=== PATIENT | male | born 1965 | race Caucasian/White ===

== ENCOUNTER 2019-03-18 11:40 | Inpatient (IN) | payer OTHER ==
[2019-03-18 12:11] VITALS: BMI 29.7
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
[2019-03-18] MEDS ORDERED: MENTHOL/PHENOL 1 EACH UD MM PRN (13:18)
[2019-03-18] MEDS ORDERED: MAGNESIUM CITRATE 300 ML BOTTLE PO PRN (13:18)
[2019-03-18] MEDS ORDERED: MAGNESIUM HYDROX 2400MG/30ML ORAL SUSPENSION 30 ML CUP PO PRN (13:18)
[2019-03-18] MEDS ORDERED: P-EPHED 60MG/TRIPROLIDI 2.5MG TABLET PO PRN (13:18)
[2019-03-18] MEDS ORDERED: LOPERAMIDE HCL 2 MG CAPSULE PO PRN (13:18)
[2019-03-18] MEDS ORDERED: MAG HYDROX/AL HYDROX/SIMETH 30 ML UNIT-DOSE CUP PO PRN (13:18)
[2019-03-18] MEDS ORDERED: guaiFENesin 200 MG/10 ML 10 ML UNIT-DOSE CUPS PO PRN (13:18)
[2019-03-18] MEDS: metFORMIN HCL 500 MG TABLET (FP) PO SCH (16:51)
[2019-03-18 17:25] LABS: MCHC 32.4 g/dl (32.0-35.9); MEAN PLT VOLUME 8.1 fl (7.5-11.1); PLATELET COUNT 349 K/MM3 (134-434); RDW 24.6 % (11.9-15.9); WHITE BLOOD COUNT 6.4 K/mm3 (4.0-10.0)
[2019-03-18 17:36] LABS: ALBUMIN 4.1 g/dl (3.4-5.0); BILIRUBIN,TOTAL 0.5 mg/dL (0.2-1); BLOOD UREA NITROGEN 11.6 mg/dL (7-18); CALCIUM 9.5 mg/dL (8.5-10.1); CREATININE 0.7 mg/dL (0.55-1.3); POTASSIUM 3.8 mmol/L (3.5-5.1); TOT PROT 8.1 g/dl (6.4-8.2)
[2019-03-18] MEDS: IBUPROFEN 400 MG TABLET (FP) PO PRN ×2 (18:36→23:58)
[2019-03-18] MEDS: BACITRACIN 15 GM TUBE TOPICAL OINTMENT TP SCH (21:38)
[2019-03-18] MEDS: ATENOLOL 25 MG TABLET (FP) PO SCH (21:38)
[2019-03-18] MEDS: MELATONIN 5 MG TABLETS PO PRN (21:38)
[2019-03-18] MEDS: THIAMINE HCL 100 MG TABLET (FP) PO SCH (21:38)
[2019-03-19] MEDS: ACETAMINOPHEN 325 MG TABLET (FP) PO PRN ×2 (02:03→18:52)
[2019-03-19] MEDS: metFORMIN HCL 500 MG TABLET (FP) PO SCH ×2 (06:21→16:35)
--- NOTE | 2019-03-19 09:17 | PN ---
[facility] Progress Note Note: Vital Signs Temperature 97.9 F 03/19/19 07:07 Pulse Rate 68 03/19/19 07:07 Respiratory Rate 18 03/19/19 07:07 Blood Pressure 146/94 03/19/19 07:07 O2 Sat by Pulse Oximetry (%) Laboratory Last Values WBC 6.4 K/mm3 (4.0-10.0) 03/18/19 13:10 RBC 4.80 M/mm3 (4.00-5.60) 03/18/19 13:10 Hgb 12.0 GM/dL (11.7-16.9) 03/18/19 13:10 Hct 37.0 % (35.4-49) 03/18/19 13:10 MCV 77.0 fl (80-96) L 03/18/19 13:10 MCH 25.0 pg (25.7-33.7) L 03/18/19 13:10 MCHC 32.4 g/dl (32.0-35.9) 03/18/19 13:10 RDW 24.6 % (11.9-15.9) H 03/18/19 13:10 Plt Count 349 K/MM3 (134-434) 03/18/19 13:10 MPV 8.1 fl (7.5-11.1) 03/18/19 13:10 Sodium 137 mmol/L (136-145) 03/18/19 13:10 Potassium 3.8 mmol/L (3.5-5.1) 03/18/19 13:10 Chloride 101 mmol/L (98-107) 03/18/19 13:10 Carbon Dioxide 30 mmol/L (21-32) 03/18/19 13:10 Anion Gap 6 MMOL/L (8-16) L 03/18/19 13:10 BUN 11.6 mg/dL (7-18) 03/18/19 13:10 Creatinine 0.7 mg/dL (0.55-1.3) 03/18/19 13:10 Est GFR (CKD-EPI)AfAm 126.64 03/18/19 13:10 Est GFR (CKD-EPI)NonAf 109.27 03/18/19 13:10 POC Glucometer 128 UNITS (80-120) 03/19/19 06:20 Random Glucose 138 mg/dL (74-106) H 03/18/19 13:10 Calcium 9.5 mg/dL (8.5-10.1) 03/18/19 13:10 Total Bilirubin 0.5 mg/dL (0.2-1) 03/18/19 13:10 AST 27 U/L (15-37) 03/18/19 13:10 ALT 34 U/L (13-61) 03/18/19 13:10 Alkaline Phosphatase 154 U/L (45-117) H 03/18/19 13:10 Total Protein 8.1 g/dl (6.4-8.2) 03/18/19 13:10 Albumin 4.1 g/dl (3.4-5.0) 03/18/19 13:10 RPR Titer Nonreactive (NONREACTIVE) 03/18/19 13:10 labs reviewed continue to monitor
[2019-03-19] MEDS: PRENATAL VITAMINS W/ FOLIC ACID TABLET (FP) PO SCH (09:34)
[2019-03-19] MEDS: BACITRACIN 15 GM TUBE TOPICAL OINTMENT TP SCH ×2 (09:35→21:21)
[2019-03-19] MEDS: ATENOLOL 25 MG TABLET (FP) PO SCH ×2 (09:35→21:21)
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
[2019-03-19 12:05] LABS: EPI CELLS 1.7 /HPF (0-5/HPF); HYALINE CASTS 9 /lpf (0-8); PH,URINE 6.5 (5.0-8.0); URINE APPEARANCE CLEAR; URINE BACTERIA 1.7 /hpf (NEGATIVE); URINE BILIRUBIN NEGATIVE (NEGATIVE); URINE COLOR DK YELLOW; URINE GLUCOSE (UA) NEGATIVE (NEGATIVE); URINE KETONE TRACE (NEGATIVE); URINE LEUK ESTERASE NEGATIVE (NEGATIVE); URINE NITRITE NEGATIVE (NEGATIVE); URINE PROTEIN 1+ (NEGATIVE); URINE RBC 1 /hpf (0-4); URINE WBC 1 /hpf (0-5)
[2019-03-19] MEDS: IBUPROFEN 400 MG TABLET (FP) PO PRN (14:59)
[2019-03-19] MEDS: MELATONIN 5 MG TABLETS PO PRN (21:21)
[2019-03-19] MEDS: THIAMINE HCL 100 MG TABLET (FP) PO SCH (21:21)
[2019-03-20] MEDS: IBUPROFEN 400 MG TABLET (FP) PO PRN ×2 (01:33→19:03)
[2019-03-20] MEDS: metFORMIN HCL 500 MG TABLET (FP) PO SCH ×2 (06:28→16:32)
[2019-03-20] MEDS: SERTRALINE HCL 50 MG TABLET (FP) PO SCH (10:13)
[2019-03-20] MEDS: ATENOLOL 25 MG TABLET (FP) PO SCH ×2 (10:13→21:20)
[2019-03-20] MEDS: PRENATAL VITAMINS W/ FOLIC ACID TABLET (FP) PO SCH (10:14)
[2019-03-20] MEDS: BACITRACIN 15 GM TUBE TOPICAL OINTMENT TP SCH ×2 (10:15→21:20)
--- NOTE | 2019-03-20 13:39 | PN ---
[facility] Progress Note Note: Patient seen for c/o insomnia and feeling sad. Evaluated by Psych yesterday and restarted on Zoloft. Patient denies SI/HI and states insomnia contributes to sadness. Vital Signs Temperature 98.3 F 03/20/19 07:38 Pulse Rate 66 03/20/19 09:30 Respiratory Rate 18 03/20/19 09:30 Blood Pressure 144/98 03/20/19 09:30 O2 Sat by Pulse Oximetry (%) Laboratory Tests 03/18/19 03/18/19 03/18/19 13:10 13:10 13:10 WBC 6.4 RBC 4.80 Hgb 12.0 Hct 37.0 MCV 77.0 L MCH 25.0 L MCHC 32.4 RDW 24.6 H Plt Count 349 MPV 8.1 Sodium 137 Potassium 3.8 Chloride 101 Carbon Dioxide 30 Anion Gap 6 L BUN 11.6 Creatinine 0.7 Est GFR (CKD-EPI)AfAm 126.64 Est GFR (CKD-EPI)NonAf 109.27 POC Glucometer Random Glucose 138 H Calcium 9.5 Total Bilirubin 0.5 AST 27 ALT 34 Alkaline Phosphatase 154 H Total Protein 8.1 Albumin 4.1 Urine Color Urine Appearance Urine pH Ur Specific Upatoi Urine Protein Urine Glucose (UA) Urine Ketones Urine Blood Urine Nitrite Urine Bilirubin Urine Urobilinogen Ur Leukocyte Esterase Urine WBC (Auto) Urine RBC (Auto) Urine Casts (Auto) U Epithel Cells (Auto) Urine Bacteria (Auto) RPR Titer Nonreactive 03/18/19 03/18/19 03/19/19 13:55 16:50 06:20 WBC RBC Hgb Hct MCV MCH MCHC RDW Plt Count MPV Sodium Potassium Chloride Carbon Dioxide Anion Gap BUN Creatinine Est GFR (CKD-EPI)AfAm Est GFR (CKD-EPI)NonAf POC Glucometer 153 104 128 Random Glucose Calcium Total Bilirubin AST ALT Alkaline Phosphatase Total Protein Albumin Urine Color Urine Appearance Urine pH Ur Specific Upatoi Urine Protein Urine Glucose (UA) Urine Ketones Urine Blood Urine Nitrite Urine Bilirubin Urine Urobilinogen Ur Leukocyte Esterase Urine WBC (Auto) Urine RBC (Auto) Urine Casts (Auto) U Epithel Cells (Auto) Urine Bacteria (Auto) RPR Titer 03/19/19 03/19/19 03/20/19 09:40 16:35 06:27 WBC RBC Hgb Hct MCV MCH MCHC RDW Plt Count MPV Sodium Potassium Chloride Carbon Dioxide Anion Gap BUN Creatinine Est GFR (CKD-EPI)AfAm Est GFR (CKD-EPI)NonAf POC Glucometer 152 149 Random Glucose Calcium Total Bilirubin AST ALT Alkaline Phosphatase Total Protein Albumin Urine Color Dk yellow Urine Appearance Clear Urine pH 6.5 Ur Specific Upatoi 1.037 H Urine Protein 1+ H Urine Glucose (UA) Negative Urine Ketones Trace H Urine Blood Negative Urine Nitrite Negative Urine Bilirubin Negative Urine Urobilinogen 1.0 Ur Leukocyte Esterase Negative Urine WBC (Auto) 1 Urine RBC (Auto) 1 Urine Casts (Auto) 9 U Epithel Cells (Auto) 1.7 Urine Bacteria (Auto) 1.7 RPR Titer PE: in nad sitting in wheelchair alert and oriented x 3 skin warm and dry +perrla, eoms intact bl ext no tremors denies SI/HI A/P: insomnia depressed affect continue psych recommendations add belsomara 10mg hs prn monitor clinically
[2019-03-20] MEDS: THIAMINE HCL 100 MG TABLET (FP) PO SCH (21:20)
[2019-03-20] MEDS: SUVOREXANT 10 MG TABLET PO PRN (21:21)
--- NOTE | 2019-03-21 01:39 | PN ---
[facility] Progress Note Note: Patient was found kneeling at his bedside. He reports that he slipped from the bed while transferring to his wheelchair.He denies pain, dizziness and loss of consciousness. Patient was assessed in bed. No redness, scratches, bruise or swelling noted. Skin is intact. Fall protocol # 1 initiated. Patient refused to go to ER for further evaluation and signed the refusal of treatment form. Vital Signs - 24 hr 03/20/19 03/20/19 03/21/19 07:38 09:30 01:00 Temperature 98.3 F 98 F Pulse Rate 61 66 73 Respiratory 18 18 18 Rate Blood Pressure 142/93 144/98 151/82 03/21/19 03/21/19 03:00 05:00 Temperature 98 F 98 F Pulse Rate 69 68 Respiratory 18 18 Rate Blood Pressure 140/94 134/78 ASSESSMENT: CONSTITUTIONAL: Well developed, age appropriate, wheelchair bound HEENT: Head is normocephalic, atraumatic, EOMI. PERRLA NECK:Supple, Treachea midlin. Full ROM. No bruits heard bilaterally HEART: Regular rhythm, no murmurs, rubs or gallops LUNGS: Clear to ausclationbilaterally, No wheezing noted ABDOMEN: Soft, Protuberent, Normal bowel sounds. No palpable mass or guarding. EXTREMITIES: Peripheral pulses intact. No lower extremities edema noted NEUROLOGICAL : Alert and oriented x 3, No LOC, No focal deficits, Moves all extremities ACTION: Fall protocol #1 initiated Tylenol 650mg tablet Q6H prn Maintain fall and safety precautions
[2019-03-21] MEDS: metFORMIN HCL 500 MG TABLET (FP) PO SCH ×2 (07:06→17:58)
[2019-03-21] MEDS ORDERED: PT OWN MED DRAWER 7, Y5N ONE (09:20)
[2019-03-21] MEDS: PRENATAL VITAMINS W/ FOLIC ACID TABLET (FP) PO SCH (10:08)
[2019-03-21] MEDS: SERTRALINE HCL 50 MG TABLET (FP) PO SCH (10:08)
[2019-03-21] MEDS: ATENOLOL 25 MG TABLET (FP) PO SCH ×2 (10:08→22:03)
[2019-03-21] MEDS: BACITRACIN 15 GM TUBE TOPICAL OINTMENT TP SCH ×2 (10:09→22:04)
[2019-03-21] MEDS: IBUPROFEN 400 MG TABLET (FP) PO PRN ×2 (10:10→16:14)
[2019-03-21] MEDS: THIAMINE HCL 100 MG TABLET (FP) PO SCH (22:02)
[2019-03-21] MEDS: SUVOREXANT 10 MG TABLET PO PRN (22:03)
[2019-03-21] MEDS: ACETAMINOPHEN 325 MG TABLET (FP) PO PRN (22:07)
[2019-03-22] MEDS: IBUPROFEN 400 MG TABLET (FP) PO PRN ×3 (02:16→17:00)
[2019-03-22] MEDS: metFORMIN HCL 500 MG TABLET (FP) PO SCH ×2 (07:03→17:00)
[2019-03-22] MEDS: SERTRALINE HCL 50 MG TABLET (FP) PO SCH (10:19)
[2019-03-22] MEDS: BACITRACIN 15 GM TUBE TOPICAL OINTMENT TP SCH ×2 (10:19→21:27)
[2019-03-22] MEDS: ATENOLOL 25 MG TABLET (FP) PO SCH ×2 (10:19→21:27)
[2019-03-22] MEDS: PRENATAL VITAMINS W/ FOLIC ACID TABLET (FP) PO SCH (10:19)
[2019-03-22] MEDS: SUVOREXANT 10 MG TABLET PO PRN (21:26)
[2019-03-22] MEDS: ACETAMINOPHEN 325 MG TABLET (FP) PO PRN (21:27)
[2019-03-22] MEDS: THIAMINE HCL 100 MG TABLET (FP) PO SCH (21:27)
[2019-03-23] MEDS: IBUPROFEN 400 MG TABLET (FP) PO PRN (00:38)
[2019-03-23] MEDS: metFORMIN HCL 500 MG TABLET (FP) PO SCH ×2 (06:52→16:27)
[2019-03-23] MEDS: BACITRACIN 15 GM TUBE TOPICAL OINTMENT TP SCH ×2 (10:17→21:31)
[2019-03-23] MEDS: SERTRALINE HCL 50 MG TABLET (FP) PO SCH (10:17)
[2019-03-23] MEDS: PRENATAL VITAMINS W/ FOLIC ACID TABLET (FP) PO SCH (10:17)
[2019-03-23] MEDS: ATENOLOL 25 MG TABLET (FP) PO SCH ×2 (10:17→21:29)
[2019-03-23] MEDS: IBUPROFEN 600 MG TABLET (FP) PO PRN ×2 (10:18→21:30)
[2019-03-23] MEDS: THIAMINE HCL 100 MG TABLET (FP) PO SCH (21:29)
[2019-03-23] MEDS ORDERED: SUVOREXANT 10 MG TABLET PO PRN (22:00)
[2019-03-24] MEDS: metFORMIN HCL 500 MG TABLET (FP) PO SCH ×2 (06:11→16:35)
[2019-03-24] MEDS: IBUPROFEN 600 MG TABLET (FP) PO PRN ×2 (06:13→21:10)
[2019-03-24] MEDS: SERTRALINE HCL 50 MG TABLET (FP) PO SCH (09:41)
[2019-03-24] MEDS: PRENATAL VITAMINS W/ FOLIC ACID TABLET (FP) PO SCH (09:41)
[2019-03-24] MEDS: ATENOLOL 25 MG TABLET (FP) PO SCH ×2 (09:41→21:09)
[2019-03-24] MEDS: ACETAMINOPHEN 325 MG TABLET (FP) PO PRN (09:42)
[2019-03-24] MEDS: BACITRACIN 15 GM TUBE TOPICAL OINTMENT TP SCH ×2 (09:44→21:11)
[2019-03-24] MEDS: THIAMINE HCL 100 MG TABLET (FP) PO SCH (21:09)
[2019-03-24] MEDS: SUVOREXANT 10 MG TABLET PO PRN (21:10)
[2019-03-25] MEDS: metFORMIN HCL 500 MG TABLET (FP) PO SCH ×2 (07:04→16:43)
[2019-03-25] MEDS: ATENOLOL 25 MG TABLET (FP) PO SCH ×2 (10:44→22:02)
[2019-03-25] MEDS: BACITRACIN 15 GM TUBE TOPICAL OINTMENT TP SCH ×2 (10:44→22:02)
[2019-03-25] MEDS: SERTRALINE HCL 50 MG TABLET (FP) PO SCH (10:44)
[2019-03-25] MEDS: PRENATAL VITAMINS W/ FOLIC ACID TABLET (FP) PO SCH (10:44)
[2019-03-25] MEDS: IBUPROFEN 600 MG TABLET (FP) PO PRN ×2 (10:46→22:04)
[2019-03-25] MEDS ORDERED: ACETAMINOPHEN 325 MG TABLET (FP) PO PRN (12:42)
--- NOTE | 2019-03-25 12:49 | PN ---
[facility] Progress Note Note: c/o pain in neck radiating down both arms. Unable to raise right arm to shoulder level. P/E: general: no apparent distress MSK: limited ROM right arm, crepitus, limited ROm neck. wheelchair bound. A/P: osteoarthritis On sufficient dose of Motrin or Tylenol. Added lidoderm patch and brooke-pritchard. Will continue to monitor,
[2019-03-25] MEDS: LIDOCAINE 5% TOPICAL PATCH TP SCH (14:21)
[2019-03-25] MEDS: THIAMINE HCL 100 MG TABLET (FP) PO SCH (22:02)
[2019-03-25] MEDS: LIDOCAINE PATCH REMOVAL MC SCH (22:02)
[2019-03-25] MEDS: SUVOREXANT 10 MG TABLET PO PRN (22:03)
[2019-03-25] MEDS: METHYL SALICYLATE/MENTHOL OINT 30 GM TUBE TP SCH (22:05)
[2019-03-26] MEDS: IBUPROFEN 600 MG TABLET (FP) PO PRN (06:09)
[2019-03-26] MEDS: metFORMIN HCL 500 MG TABLET (FP) PO SCH ×2 (07:01→16:34)
--- NOTE | 2019-03-26 09:51 | PN ---
[facility] Progress Note Note: Continues to complain of pain in shoulders and neck P/E: unchanged, General: no apparent distress Neck: trachea aligned, limited ROM lungs: clear Heart: s1 s2 Lymph: no palpable nodes MSK: limited ROM right shoulder, unable to bear weight, uses wheelchair A/P: osteoarthritis, possible shoulder impingement- Encouraged patient to continue pain regimen including tylenol, lidoderm patch, brooke-pritchard. Added muscle relaxant. Will continue to monitor
[2019-03-26] MEDS: PRENATAL VITAMINS W/ FOLIC ACID TABLET (FP) PO SCH (10:12)
[2019-03-26] MEDS: SERTRALINE HCL 50 MG TABLET (FP) PO SCH (10:12)
[2019-03-26] MEDS: LIDOCAINE 5% TOPICAL PATCH TP SCH (10:12)
[2019-03-26] MEDS: ATENOLOL 25 MG TABLET (FP) PO SCH ×2 (10:12→21:19)
[2019-03-26] MEDS: METHOCARBAMOL 500 MG TABLET PO SCH ×2 (10:13→21:19)
[2019-03-26] MEDS: BACITRACIN 15 GM TUBE TOPICAL OINTMENT TP SCH ×2 (10:14→21:19)
[2019-03-26] MEDS: METHYL SALICYLATE/MENTHOL OINT 30 GM TUBE TP SCH (10:15)
--- NOTE | 2019-03-26 15:26 | PN ---
[facility] Progress Note Note: This commercial insurance underwriter was informed by Elida, the clinical medical operations supervisor, that the patient felt depressed and as though his life was meaningless. Although he tried to kill himself several times in the past, presently, he denies wanting to harm himself. A psychiatric consult was placed and the psychiatric service was informed of the patient's condition. JULIO Kay informed this commercial insurance underwriter that she also informed the psychiatric provider of the patient's feelings. Will continue to monitor.
[2019-03-26] MEDS: THIAMINE HCL 100 MG TABLET (FP) PO SCH (21:19)
[2019-03-26] MEDS: LIDOCAINE PATCH REMOVAL MC SCH (21:19)
[2019-03-26] MEDS: SUVOREXANT 10 MG TABLET PO PRN (21:20)
[2019-03-27] MEDS: metFORMIN HCL 500 MG TABLET (FP) PO SCH ×2 (06:40→16:50)
[2019-03-27] MEDS: METHOCARBAMOL 500 MG TABLET PO SCH ×2 (10:02→21:24)
[2019-03-27] MEDS: BACITRACIN 15 GM TUBE TOPICAL OINTMENT TP SCH ×2 (10:02→21:25)
[2019-03-27] MEDS: METHYL SALICYLATE/MENTHOL OINT 30 GM TUBE TP SCH (10:02)
[2019-03-27] MEDS: PRENATAL VITAMINS W/ FOLIC ACID TABLET (FP) PO SCH (10:02)
[2019-03-27] MEDS: SERTRALINE HCL 50 MG TABLET (FP) PO SCH (10:02)
[2019-03-27] MEDS: LIDOCAINE 5% TOPICAL PATCH TP SCH (10:02)
[2019-03-27] MEDS: ATENOLOL 25 MG TABLET (FP) PO SCH ×2 (10:02→21:25)
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
[2019-03-27] MEDS: LIDOCAINE PATCH REMOVAL MC SCH (21:24)
[2019-03-27] MEDS: IBUPROFEN 600 MG TABLET (FP) PO PRN (21:26)
[2019-03-27] MEDS: THIAMINE HCL 100 MG TABLET (FP) PO SCH (22:24)
[2019-03-28] MEDS: metFORMIN HCL 500 MG TABLET (FP) PO SCH ×2 (06:16→16:30)
[2019-03-28] MEDS: IBUPROFEN 600 MG TABLET (FP) PO PRN ×2 (06:17→16:31)
[2019-03-28] MEDS ORDERED: PT OWN MED DRAWER 7, Y5N ONE (08:41)
[2019-03-28] MEDS: BACITRACIN 15 GM TUBE TOPICAL OINTMENT TP SCH ×2 (09:53→21:14)
[2019-03-28] MEDS: LIDOCAINE 5% TOPICAL PATCH TP SCH (09:53)
[2019-03-28] MEDS: SERTRALINE HCL 50 MG TABLET (FP) PO SCH (09:54)
[2019-03-28] MEDS: METHYL SALICYLATE/MENTHOL OINT 30 GM TUBE TP SCH (09:54)
[2019-03-28] MEDS: METHOCARBAMOL 500 MG TABLET PO SCH ×2 (09:54→21:14)
[2019-03-28] MEDS: ATENOLOL 25 MG TABLET (FP) PO SCH ×2 (09:54→21:14)
[2019-03-28] MEDS: PRENATAL VITAMINS W/ FOLIC ACID TABLET (FP) PO SCH (09:54)
[2019-03-28] MEDS: LIDOCAINE PATCH REMOVAL MC SCH (21:14)
[2019-03-28] MEDS: THIAMINE HCL 100 MG TABLET (FP) PO SCH (21:14)
[2019-03-28] MEDS: SUVOREXANT 10 MG TABLET PO PRN (21:15)
[2019-03-29] MEDS: IBUPROFEN 600 MG TABLET (FP) PO PRN (06:18)
[2019-03-29] MEDS: metFORMIN HCL 500 MG TABLET (FP) PO SCH ×2 (06:18→16:21)
[2019-03-29] MEDS: SERTRALINE HCL 50 MG TABLET (FP) PO SCH (09:53)
[2019-03-29] MEDS: METHOCARBAMOL 500 MG TABLET PO SCH ×2 (09:54→21:31)
[2019-03-29] MEDS: PRENATAL VITAMINS W/ FOLIC ACID TABLET (FP) PO SCH (09:54)
[2019-03-29] MEDS: LIDOCAINE 5% TOPICAL PATCH TP SCH (09:54)
[2019-03-29] MEDS: METHYL SALICYLATE/MENTHOL OINT 30 GM TUBE TP SCH (09:54)
[2019-03-29] MEDS: BACITRACIN 15 GM TUBE TOPICAL OINTMENT TP SCH ×2 (09:54→21:31)
[2019-03-29] MEDS: ATENOLOL 25 MG TABLET (FP) PO SCH ×2 (09:54→21:31)
[2019-03-29] MEDS: SUVOREXANT 10 MG TABLET PO PRN (21:31)
[2019-03-29] MEDS: LIDOCAINE PATCH REMOVAL MC SCH (21:31)
[2019-03-29] MEDS: THIAMINE HCL 100 MG TABLET (FP) PO SCH (21:31)
[2019-03-30] MEDS: IBUPROFEN 600 MG TABLET (FP) PO PRN ×2 (02:03→10:01)
[2019-03-30] MEDS: metFORMIN HCL 500 MG TABLET (FP) PO SCH ×2 (06:49→17:34)
[2019-03-30] MEDS: METHYL SALICYLATE/MENTHOL OINT 30 GM TUBE TP SCH (10:00)
[2019-03-30] MEDS: LIDOCAINE 5% TOPICAL PATCH TP SCH (10:00)
[2019-03-30] MEDS: ATENOLOL 25 MG TABLET (FP) PO SCH ×2 (10:00→21:39)
[2019-03-30] MEDS: BACITRACIN 15 GM TUBE TOPICAL OINTMENT TP SCH ×2 (10:00→21:40)
[2019-03-30] MEDS: SERTRALINE HCL 50 MG TABLET (FP) PO SCH (10:00)
[2019-03-30] MEDS: METHOCARBAMOL 500 MG TABLET PO SCH ×2 (10:00→21:39)
[2019-03-30] MEDS: PRENATAL VITAMINS W/ FOLIC ACID TABLET (FP) PO SCH (10:00)
[2019-03-30] MEDS: THIAMINE HCL 100 MG TABLET (FP) PO SCH (21:39)
[2019-03-30] MEDS: SUVOREXANT 10 MG TABLET PO PRN (21:40)
[2019-03-30] MEDS: LIDOCAINE PATCH REMOVAL MC SCH (22:15)
[2019-03-31] MEDS: IBUPROFEN 600 MG TABLET (FP) PO PRN (06:00)
[2019-03-31] MEDS: metFORMIN HCL 500 MG TABLET (FP) PO SCH ×2 (07:17→16:18)
[2019-03-31] MEDS: PRENATAL VITAMINS W/ FOLIC ACID TABLET (FP) PO SCH (10:21)
[2019-03-31] MEDS: LIDOCAINE 5% TOPICAL PATCH TP SCH (10:21)
[2019-03-31] MEDS: BACITRACIN 15 GM TUBE TOPICAL OINTMENT TP SCH ×2 (10:22→21:08)
[2019-03-31] MEDS: SERTRALINE HCL 50 MG TABLET (FP) PO SCH (10:22)
[2019-03-31] MEDS: METHOCARBAMOL 500 MG TABLET PO SCH ×2 (10:22→21:07)
[2019-03-31] MEDS: ATENOLOL 25 MG TABLET (FP) PO SCH ×2 (10:22→21:07)
[2019-03-31] MEDS: METHYL SALICYLATE/MENTHOL OINT 30 GM TUBE TP SCH (10:22)
[2019-03-31] MEDS: THIAMINE HCL 100 MG TABLET (FP) PO SCH (21:07)
[2019-03-31] MEDS: LIDOCAINE PATCH REMOVAL MC SCH (21:08)
[2019-03-31] MEDS: SUVOREXANT 10 MG TABLET PO PRN (21:08)
[2019-04-01] MEDS: IBUPROFEN 600 MG TABLET (FP) PO PRN (06:05)
[2019-04-01] MEDS: metFORMIN HCL 500 MG TABLET (FP) PO SCH ×2 (06:49→16:29)
[2019-04-01] MEDS: ATENOLOL 25 MG TABLET (FP) PO SCH ×2 (10:10→21:27)
[2019-04-01] MEDS: METHYL SALICYLATE/MENTHOL OINT 30 GM TUBE TP SCH (10:35)
[2019-04-01] MEDS: BACITRACIN 15 GM TUBE TOPICAL OINTMENT TP SCH ×2 (10:35→23:06)
[2019-04-01] MEDS: PRENATAL VITAMINS W/ FOLIC ACID TABLET (FP) PO SCH (10:36)
[2019-04-01] MEDS: METHOCARBAMOL 500 MG TABLET PO SCH ×2 (10:36→21:27)
[2019-04-01] MEDS: SERTRALINE HCL 50 MG TABLET (FP) PO SCH (10:36)
[2019-04-01] MEDS: LIDOCAINE 5% TOPICAL PATCH TP SCH (10:37)
[2019-04-01] MEDS: THIAMINE HCL 100 MG TABLET (FP) PO SCH (21:27)
[2019-04-01] MEDS: LIDOCAINE PATCH REMOVAL MC SCH (21:28)
[2019-04-01] MEDS: SUVOREXANT 10 MG TABLET PO PRN (21:31)
[2019-04-02] MEDS: metFORMIN HCL 500 MG TABLET (FP) PO SCH ×2 (06:23→16:08)
[2019-04-02] MEDS: IBUPROFEN 600 MG TABLET (FP) PO PRN ×2 (06:23→16:10)
[2019-04-02] MEDS: METHOCARBAMOL 500 MG TABLET PO SCH ×2 (09:57→21:52)
[2019-04-02] MEDS: PRENATAL VITAMINS W/ FOLIC ACID TABLET (FP) PO SCH (09:57)
[2019-04-02] MEDS: SERTRALINE HCL 50 MG TABLET (FP) PO SCH (09:57)
[2019-04-02] MEDS: ATENOLOL 25 MG TABLET (FP) PO SCH ×2 (09:58→21:52)
[2019-04-02] MEDS: METHYL SALICYLATE/MENTHOL OINT 30 GM TUBE TP SCH (09:58)
[2019-04-02] MEDS: BACITRACIN 15 GM TUBE TOPICAL OINTMENT TP SCH ×2 (09:58→21:53)
[2019-04-02] MEDS: LIDOCAINE 5% TOPICAL PATCH TP SCH (09:58)
[2019-04-02] MEDS: THIAMINE HCL 100 MG TABLET (FP) PO SCH (21:52)
[2019-04-02] MEDS: LIDOCAINE PATCH REMOVAL MC SCH (21:53)
[2019-04-02] MEDS: SUVOREXANT 10 MG TABLET PO PRN (21:53)
[2019-04-02] MEDS ORDERED: PT OWN MED DRAWER 7, Y5N ONE (21:56)
[2019-04-03] MEDS: IBUPROFEN 600 MG TABLET (FP) PO PRN (02:54)
[2019-04-03] MEDS: metFORMIN HCL 500 MG TABLET (FP) PO SCH ×2 (06:15→16:35)
[2019-04-03] MEDS ORDERED: PT OWN MED DRAWER 7, Y5N ONE (08:48)
[2019-04-03] MEDS: PRENATAL VITAMINS W/ FOLIC ACID TABLET (FP) PO SCH (10:24)
[2019-04-03] MEDS: ATENOLOL 25 MG TABLET (FP) PO SCH ×2 (10:24→21:06)
[2019-04-03] MEDS: METHOCARBAMOL 500 MG TABLET PO SCH ×2 (10:24→21:05)
[2019-04-03] MEDS: SERTRALINE HCL 50 MG TABLET (FP) PO SCH (10:24)
[2019-04-03] MEDS: LIDOCAINE 5% TOPICAL PATCH TP SCH (10:25)
[2019-04-03] MEDS: METHYL SALICYLATE/MENTHOL OINT 30 GM TUBE TP SCH (10:27)
[2019-04-03] MEDS: BACITRACIN 15 GM TUBE TOPICAL OINTMENT TP SCH ×2 (10:27→21:05)
[2019-04-03] MEDS: THIAMINE HCL 100 MG TABLET (FP) PO SCH (21:05)
[2019-04-03] MEDS: LIDOCAINE PATCH REMOVAL MC SCH (21:05)
[2019-04-03] MEDS: SUVOREXANT 10 MG TABLET PO PRN (21:06)
[2019-04-04] MEDS: IBUPROFEN 600 MG TABLET (FP) PO PRN (06:09)
[2019-04-04] MEDS: metFORMIN HCL 500 MG TABLET (FP) PO SCH ×2 (07:05→16:52)
[2019-04-04] MEDS: METHYL SALICYLATE/MENTHOL OINT 30 GM TUBE TP SCH (09:51)
[2019-04-04] MEDS: BACITRACIN 15 GM TUBE TOPICAL OINTMENT TP SCH ×2 (09:51→21:36)
[2019-04-04] MEDS: PRENATAL VITAMINS W/ FOLIC ACID TABLET (FP) PO SCH (09:51)
[2019-04-04] MEDS: LIDOCAINE 5% TOPICAL PATCH TP SCH (09:51)
[2019-04-04] MEDS: SERTRALINE HCL 50 MG TABLET (FP) PO SCH (09:51)
[2019-04-04] MEDS: METHOCARBAMOL 500 MG TABLET PO SCH ×2 (09:51→21:35)
[2019-04-04] MEDS: ATENOLOL 25 MG TABLET (FP) PO SCH ×2 (09:51→21:35)
--- NOTE | 2019-04-04 15:20 | PN ---
[facility] Progress Note Note: Psychiatry Attending's noted : Called by nurse to renew order for suvorexant. Chart reviewed. Medication confirmed. Well tolerated. No report of adverse effects. Patient's consent already given. Renewed as : belsomra 10 mg po hs prn.
[2019-04-04] MEDS: THIAMINE HCL 100 MG TABLET (FP) PO SCH (21:35)
[2019-04-04] MEDS: SUVOREXANT 10 MG TABLET PO PRN (21:35)
[2019-04-04] MEDS: LIDOCAINE PATCH REMOVAL MC SCH (22:00)
[2019-04-05] MEDS: IBUPROFEN 600 MG TABLET (FP) PO PRN (06:29)
[2019-04-05] MEDS: metFORMIN HCL 500 MG TABLET (FP) PO SCH ×2 (07:02→16:38)
[2019-04-05] MEDS: BACITRACIN 15 GM TUBE TOPICAL OINTMENT TP SCH ×2 (10:09→21:42)
[2019-04-05] MEDS: METHYL SALICYLATE/MENTHOL OINT 30 GM TUBE TP SCH (10:09)
[2019-04-05] MEDS: PRENATAL VITAMINS W/ FOLIC ACID TABLET (FP) PO SCH (10:09)
[2019-04-05] MEDS: SERTRALINE HCL 50 MG TABLET (FP) PO SCH (10:09)
[2019-04-05] MEDS: LIDOCAINE 5% TOPICAL PATCH TP SCH (10:09)
[2019-04-05] MEDS: ATENOLOL 25 MG TABLET (FP) PO SCH ×2 (10:10→21:43)
[2019-04-05] MEDS: METHOCARBAMOL 500 MG TABLET PO SCH ×2 (10:10→21:43)
[2019-04-05] MEDS: LIDOCAINE PATCH REMOVAL MC SCH (21:43)
[2019-04-05] MEDS: THIAMINE HCL 100 MG TABLET (FP) PO SCH (21:44)
[2019-04-05] MEDS: SUVOREXANT 10 MG TABLET PO PRN (21:45)
[2019-04-06] MEDS: metFORMIN HCL 500 MG TABLET (FP) PO SCH (06:38)
[2019-04-06] MEDS: IBUPROFEN 600 MG TABLET (FP) PO PRN (06:39)
[2019-04-06 07:18] VITALS: TEMP 97
[2019-04-06 09:55] VITALS: BP 134/87; PULSE 54
--- NOTE | 2019-04-06 11:40 | DS ---
[facility] Rehab Discharge Summary - [facility] Rehab Discharge Summary Admission Date: 03/18/19 Discharge Date: 04/06/19 - History Present History: Alcohol dependence - Discharge Physical Exam Vital Signs: Vital Signs Temperature 97 F L 04/06/19 07:16 Pulse Rate 54 L 04/06/19 09:30 Respiratory Rate 18 04/06/19 09:30 Blood Pressure 134/87 04/06/19 09:30 O2 Sat by Pulse Oximetry (%) ROS: denies alcohol cravings, sweating, shakes, chest pain, sob and dizziness. PE: alert and oriented x 3 skin warm and dry neck supple, no jvd ext +right hemiparesis with right hand contracture, uses w/c and cane for support denies SI/HI - Treatment Discharge Condition: Discharge condition good Hospital Course: Patient completed rehab today for alcohol dependence. Patient attended group meetings and 1:1 sessions with counselor during admission. Aftercare arranged for [employer], however patient states he will rent a room independently as he does not want to go to alf. Patient encouraged to attend AA meetings to prevent relapse and to follow up with PCP within one week of discharge to continue medical management of chronic conditions. Patient is medically stable and denies SI/HI. Ambulatory Orders Sertraline HCl [Zoloft -] 50 mg PO DAILY 03/18/19 Atenolol [Tenormin -] 25 mg PO BID #14 tablet 04/06/19 Metformin HCl [Glucophage] 500 mg PO BID #14 tablet 04/06/19 Laboratory Tests 03/18/19 03/18/19 03/18/19 13:10 13:10 13:10 WBC 6.4 RBC 4.80 Hgb 12.0 Hct 37.0 MCV 77.0 L MCH 25.0 L MCHC 32.4 RDW 24.6 H Plt Count 349 MPV 8.1 Sodium 137 Potassium 3.8 Chloride 101 Carbon Dioxide 30 Anion Gap 6 L BUN 11.6 Creatinine 0.7 Est GFR (CKD-EPI)AfAm 126.64 Est GFR (CKD-EPI)NonAf 109.27 POC Glucometer Random Glucose 138 H Calcium 9.5 Total Bilirubin 0.5 AST 27 ALT 34 Alkaline Phosphatase 154 H Total Protein 8.1 Albumin 4.1 Urine Color Urine Appearance Urine pH Ur Specific [place] Urine Protein Urine Glucose (UA) Urine Ketones Urine Blood Urine Nitrite Urine Bilirubin Urine Urobilinogen Ur Leukocyte Esterase Urine WBC (Auto) Urine RBC (Auto) Urine Casts (Auto) U Epithel Cells (Auto) Urine Bacteria (Auto) RPR Titer Nonreactive 03/18/19 03/18/19 03/19/19 13:55 16:50 06:20 WBC RBC Hgb Hct MCV MCH MCHC RDW Plt Count MPV Sodium Potassium Chloride Carbon Dioxide Anion Gap BUN Creatinine Est GFR (CKD-EPI)AfAm Est GFR (CKD-EPI)NonAf POC Glucometer 153 104 128 Random Glucose Calcium Total Bilirubin AST ALT Alkaline Phosphatase Total Protein Albumin Urine Color Urine Appearance Urine pH Ur Specific [place] Urine Protein Urine Glucose (UA) Urine Ketones Urine Blood Urine Nitrite Urine Bilirubin Urine Urobilinogen Ur Leukocyte Esterase Urine WBC (Auto) Urine RBC (Auto) Urine Casts (Auto) U Epithel Cells (Auto) Urine Bacteria (Auto) RPR Titer 03/19/19 03/19/19 03/20/19 09:40 16:35 06:27 WBC RBC Hgb Hct MCV MCH MCHC RDW Plt Count MPV Sodium Potassium Chloride Carbon Dioxide Anion Gap BUN Creatinine Est GFR (CKD-EPI)AfAm Est GFR (CKD-EPI)NonAf POC Glucometer 152 149 Random Glucose Calcium Total Bilirubin AST ALT Alkaline Phosphatase Total Protein Albumin Urine Color Dk yellow Urine Appearance Clear Urine pH 6.5 Ur Specific [place] 1.037 H Urine Protein 1+ H Urine Glucose (UA) Negative Urine Ketones Trace H Urine Blood Negative Urine Nitrite Negative Urine Bilirubin Negative Urine Urobilinogen 1.0 Ur Leukocyte Esterase Negative Urine WBC (Auto) 1 Urine RBC (Auto) 1 Urine Casts (Auto) 9 U Epithel Cells (Auto) 1.7 Urine Bacteria (Auto) 1.7 RPR Titer 03/20/19 03/21/19 03/21/19 16:33 06:22 16:49 WBC RBC Hgb Hct MCV MCH MCHC RDW Plt Count MPV Sodium Potassium Chloride Carbon Dioxide Anion Gap BUN Creatinine Est GFR (CKD-EPI)AfAm Est GFR (CKD-EPI)NonAf POC Glucometer 139 95 180 Random Glucose Calcium Total Bilirubin AST ALT Alkaline Phosphatase Total Protein Albumin Urine Color Urine Appearance Urine pH Ur Specific [place] Urine Protein Urine Glucose (UA) Urine Ketones Urine Blood Urine Nitrite Urine Bilirubin Urine Urobilinogen Ur Leukocyte Esterase Urine WBC (Auto) Urine RBC (Auto) Urine Casts (Auto) U Epithel Cells (Auto) Urine Bacteria (Auto) RPR Titer 03/22/19 03/22/19 03/23/19 06:30 16:59 06:52 WBC RBC Hgb Hct MCV MCH MCHC RDW Plt Count MPV Sodium Potassium Chloride Carbon Dioxide Anion Gap BUN Creatinine Est GFR (CKD-EPI)AfAm Est GFR (CKD-EPI)NonAf POC Glucometer 103 87 117 Random Glucose Calcium Total Bilirubin AST ALT Alkaline Phosphatase Total Protein Albumin Urine Color Urine Appearance Urine pH Ur Specific [place] Urine Protein Urine Glucose (UA) Urine Ketones Urine Blood Urine Nitrite Urine Bilirubin Urine Urobilinogen Ur Leukocyte Esterase Urine WBC (Auto) Urine RBC (Auto) Urine Casts (Auto) U Epithel Cells (Auto) Urine Bacteria (Auto) RPR Titer 03/23/19 03/24/19 03/24/19 16:26 06:12 16:36 WBC RBC Hgb Hct MCV MCH MCHC RDW Plt Count MPV Sodium Potassium Chloride Carbon Dioxide Anion Gap BUN Creatinine Est GFR (CKD-EPI)AfAm Est GFR (CKD-EPI)NonAf POC Glucometer 131 109 121 Random Glucose Calcium Total Bilirubin AST ALT Alkaline Phosphatase Total Protein Albumin Urine Color Urine Appearance Urine pH Ur Specific [place] Urine Protein Urine Glucose (UA) Urine Ketones Urine Blood Urine Nitrite Urine Bilirubin Urine Urobilinogen Ur Leukocyte Esterase Urine WBC (Auto) Urine RBC (Auto) Urine Casts (Auto) U Epithel Cells (Auto) Urine Bacteria (Auto) RPR Titer 03/25/19 03/25/19 03/26/19 05:56 16:43 06:07 WBC RBC Hgb Hct MCV MCH MCHC RDW Plt Count MPV Sodium Potassium Chloride Carbon Dioxide Anion Gap BUN Creatinine Est GFR (CKD-EPI)AfAm Est GFR (CKD-EPI)NonAf POC Glucometer 101 106 112 Random Glucose Calcium Total Bilirubin AST ALT Alkaline Phosphatase Total Protein Albumin Urine Color Urine Appearance Urine pH Ur Specific [place] Urine Protein Urine Glucose (UA) Urine Ketones Urine Blood Urine Nitrite Urine Bilirubin Urine Urobilinogen Ur Leukocyte Esterase Urine WBC (Auto) Urine RBC (Auto) Urine Casts (Auto) U Epithel Cells (Auto) Urine Bacteria (Auto) RPR Titer 03/26/19 03/27/19 03/27/19 16:32 06:18 16:45 WBC RBC Hgb Hct MCV MCH MCHC RDW Plt Count MPV Sodium Potassium Chloride Carbon Dioxide Anion Gap BUN Creatinine Est GFR (CKD-EPI)AfAm Est GFR (CKD-EPI)NonAf POC Glucometer 115 98 102 Random Glucose Calcium Total Bilirubin AST ALT Alkaline Phosphatase Total Protein Albumin Urine Color Urine Appearance Urine pH Ur Specific [place] Urine Protein Urine Glucose (UA) Urine Ketones Urine Blood Urine Nitrite Urine Bilirubin Urine Urobilinogen Ur Leukocyte Esterase Urine WBC (Auto) Urine RBC (Auto) Urine Casts (Auto) U Epithel Cells (Auto) Urine Bacteria (Auto) RPR Titer 03/28/19 03/28/19 03/29/19 06:14 16:28 06:17 WBC RBC Hgb Hct MCV MCH MCHC RDW Plt Count MPV Sodium Potassium Chloride Carbon Dioxide Anion Gap BUN Creatinine Est GFR (CKD-EPI)AfAm Est GFR (CKD-EPI)NonAf POC Glucometer 106 124 95 Random Glucose Calcium Total Bilirubin AST ALT Alkaline Phosphatase Total Protein Albumin Urine Color Urine Appearance Urine pH Ur Specific [place] Urine Protein Urine Glucose (UA) Urine Ketones Urine Blood Urine Nitrite Urine Bilirubin Urine Urobilinogen Ur Leukocyte Esterase Urine WBC (Auto) Urine RBC (Auto) Urine Casts (Auto) U Epithel Cells (Auto) Urine Bacteria (Auto) RPR Titer 03/29/19 03/29/19 03/30/19 11:25 16:22 05:56 WBC RBC Hgb Hct MCV MCH MCHC RDW Plt Count MPV Sodium Potassium Chloride Carbon Dioxide Anion Gap BUN Creatinine Est GFR (CKD-EPI)AfAm Est GFR (CKD-EPI)NonAf POC Glucometer 118 99 101 Random Glucose Calcium Total Bilirubin AST ALT Alkaline Phosphatase Total Protein Albumin Urine Color Urine Appearance Urine pH Ur Specific [place] Urine Protein Urine Glucose (UA) Urine Ketones Urine Blood Urine Nitrite Urine Bilirubin Urine Urobilinogen Ur Leukocyte Esterase Urine WBC (Auto) Urine RBC (Auto) Urine Casts (Auto) U Epithel Cells (Auto) Urine Bacteria (Auto) RPR Titer 03/30/19 03/31/19 03/31/19 17:11 05:59 16:17 WBC RBC Hgb Hct MCV MCH MCHC RDW Plt Count MPV Sodium Potassium Chloride Carbon Dioxide Anion Gap BUN Creatinine Est GFR (CKD-EPI)AfAm Est GFR (CKD-EPI)NonAf POC Glucometer 103 113 99 Random Glucose Calcium Total Bilirubin AST ALT Alkaline Phosphatase Total Protein Albumin Urine Color Urine Appearance Urine pH Ur Specific [place] Urine Protein Urine Glucose (UA) Urine Ketones Urine Blood Urine Nitrite Urine Bilirubin Urine Urobilinogen Ur Leukocyte Esterase Urine WBC (Auto) Urine RBC (Auto) Urine Casts (Auto) U Epithel Cells (Auto) Urine Bacteria (Auto) RPR Titer 04/01/19 04/01/19 04/02/19 06:03 16:28 06:22 WBC RBC Hgb Hct MCV MCH MCHC RDW Plt Count MPV Sodium Potassium Chloride Carbon Dioxide Anion Gap BUN Creatinine Est GFR (CKD-EPI)AfAm Est GFR (CKD-EPI)NonAf POC Glucometer 100 115 122 Random Glucose Calcium Total Bilirubin AST ALT Alkaline Phosphatase Total Protein Albumin Urine Color Urine Appearance Urine pH Ur Specific [place] Urine Protein Urine Glucose (UA) Urine Ketones Urine Blood Urine Nitrite Urine Bilirubin Urine Urobilinogen Ur Leukocyte Esterase Urine WBC (Auto) Urine RBC (Auto) Urine Casts (Auto) U Epithel Cells (Auto) Urine Bacteria (Auto) RPR Titer 04/02/19 04/03/19 04/03/19 16:08 06:14 16:35 WBC RBC Hgb Hct MCV MCH MCHC RDW Plt Count MPV Sodium Potassium Chloride Carbon Dioxide Anion Gap BUN Creatinine Est GFR (CKD-EPI)AfAm Est GFR (CKD-EPI)NonAf POC Glucometer 127 105 112 Random Glucose Calcium Total Bilirubin AST ALT Alkaline Phosphatase Total Protein Albumin Urine Color Urine Appearance Urine pH Ur Specific [place] Urine Protein Urine Glucose (UA) Urine Ketones Urine Blood Urine Nitrite Urine Bilirubin Urine Urobilinogen Ur Leukocyte Esterase Urine WBC (Auto) Urine RBC (Auto) Urine Casts (Auto) U Epithel Cells (Auto) Urine Bacteria (Auto) RPR Titer 04/04/19 04/05/19 04/05/19 06:07 06:28 16:37 WBC RBC Hgb Hct MCV MCH MCHC RDW Plt Count MPV Sodium Potassium Chloride Carbon Dioxide Anion Gap BUN Creatinine Est GFR (CKD-EPI)AfAm Est GFR (CKD-EPI)NonAf POC Glucometer 99 99 94 Random Glucose Calcium Total Bilirubin AST ALT Alkaline Phosphatase Total Protein Albumin Urine Color Urine Appearance Urine pH Ur Specific [place] Urine Protein Urine Glucose (UA) Urine Ketones Urine Blood Urine Nitrite Urine Bilirubin Urine Urobilinogen Ur Leukocyte Esterase Urine WBC (Auto) Urine RBC (Auto) Urine Casts (Auto) U Epithel Cells (Auto) Urine Bacteria (Auto) RPR Titer 04/06/19 06:37 WBC RBC Hgb Hct MCV MCH MCHC RDW Plt Count MPV Sodium Potassium Chloride Carbon Dioxide Anion Gap BUN Creatinine Est GFR (CKD-EPI)AfAm Est GFR (CKD-EPI)NonAf POC Glucometer 109 Random Glucose Calcium Total Bilirubin AST ALT Alkaline Phosphatase Total Protein Albumin Urine Color Urine Appearance Urine pH Ur Specific [place] Urine Protein Urine Glucose (UA) Urine Ketones Urine Blood Urine Nitrite Urine Bilirubin Urine Urobilinogen Ur Leukocyte Esterase Urine WBC (Auto) Urine RBC (Auto) Urine Casts (Auto) U Epithel Cells (Auto) Urine Bacteria (Auto) RPR Titer - Medication Discharge Medications: Ambulatory Orders Sertraline HCl [Zoloft -] 50 mg PO DAILY 03/18/19 Atenolol [Tenormin -] 25 mg PO BID #14 tablet 04/06/19 Metformin HCl [Glucophage] 500 mg PO BID #14 tablet 04/06/19 - Medication-Assisted Treatment (MAT) Medication-Assisted Treatment (MAT): No - Discharge Instructions Diet, activity, other medical instructions: Diet: NCS/KIARA as tolerated Activity: as tolerated Other medical instructions: Follow up with PCP as recommended - Follow-up Referral Minutes to complete discharge: 30 - AMA Did Patient Leave Against Medical Advice: No
== END 2019-04-06 10:53 | disposition home or self-care (01) | DRG 895 ==
LOC: YASAS 11:40 → Y3W 14:15
PROVIDERS: ADMIT Neuromusculoskeletal Medicine & OMM; ATTEND Neuromusculoskeletal Medicine & OMM
PROC: HZ42ZZZ Group Counseling for Substance Abuse Treatment, Cognitive-Behavioral (ICD-10-PCS; principal; 2019-03-18)
DX: F10.24 Alcohol dependence with alcohol-induced mood disorder (principal); R56.1 Post traumatic seizures; F32.9 Major depressive disorder, single episode, unspecified; I10 Essential (primary) hypertension; E11.9 Type 2 diabetes mellitus without complications; Z79.84 Long term (current) use of oral hypoglycemic drugs; G47.00 Insomnia, unspecified; M19.90 Unspecified osteoarthritis, unspecified site; Z87.820 Personal history of traumatic brain injury; Z99.3 Dependence on wheelchair; Z87.891 Personal history of nicotine dependence; Z59.0 Homelessness
CPT/HCPCS: 36415; 80053; 81003; 82962; 85027; 86593

== ENCOUNTER 2019-04-08 13:20 | Emergency (ER) | payer OTHER ==
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
[2019-04-08 14:25] VITALS: BP 105/55; PULSE 79; TEMP 97.4; BMI 25.0
--- NOTE | 2019-04-08 14:40 | PDOC ---
Documentation entered by Agustin Pruitt SCRIBE, acting as scribe for Boyd Olson MD. Boyd Olson MD: This documentation has been prepared by the Sonal harvey Nirvannie, SCRIBE, under my direction and personally reviewed by me in its entirety. I confirm that the documentation accurately reflects all work, treatment, procedures, and medical decision making performed by me. Attending Attestation - Resident Resident Name: ChuyitaAugust badillohanie - ED Attending Attestation I have performed the following: I have examined & evaluated the patient, The case was reviewed & discussed with the resident, I agree w/resident's findings & plan - HPI HPI: 04/08/19 14:26 The patient is a 53 year old male, with a significant past medical history of HTN, DM, Depression, and alcohol abuse (d/c from detox , who presents to the ) emergency department with, alcohol intoxication. Patient denies drinking alcohol and denies any recent falls. While in the ED, patient speech is slurred . Allergies: NKDA Primary Care Physician: Dr. India Wilson - Physicial Exam PE: 04/08/19 14:37 Patient is awake, well-nourished, disheveled, does not follow commands, +aob Speech is slurred Normocephalic; + soft tissue swelling and ecchymoses noted to the left periorbital area (unknown chronicity); no bony crepitus or step-offs noted PERRLA, no nystagmus Neck is supple, no obvious deformity CTA RRR Moving all extremities; gait deferred - Medical Decision Making 04/08/19 14:39 53-year-old male with history of alcohol abuse, hypertension, diabetes, 2 days post inpatient rehab presents with altered mental status, alcohol on breath and questionable facial injuries. Will obtain CT of head and cervical spine given patient's altered mental status. Will obtain CBC/CMP/blood alcohol level. Will reassess to clinical sobriety.
[2019-04-08 15:48] LABS: BASO % 1.8 % (0-2.0); EOS % 8.5 % (0-4.5); HEMATOCRIT 37.8 % (35.4-49); HEMOGLOBIN 12.1 GM/dL (11.7-16.9); LYMPH % 37.4 % (8-40); MCH 24.3 pg (25.7-33.7); MCHC 32.1 g/dl (32.0-35.9); MEAN CELL VOLUME 75.8 fl (80-96); MEAN PLT VOLUME 7.4 fl (7.5-11.1); MONO % 5.9 % (3.8-10.2); NEUT % 46.4 % (42.8-82.8); PLATELET COUNT 464 K/MM3 (134-434); RBC 4.99 M/mm3 (4.00-5.60)
[2019-04-08 16:03] LABS: ALBUMIN 4.4 g/dl (3.4-5.0); BILIRUBIN,TOTAL 0.2 mg/dL (0.2-1); BLOOD UREA NITROGEN 5.1 mg/dL (7-18); CALCIUM 9.3 mg/dL (8.5-10.1); CREATININE 0.6 mg/dL (0.55-1.3); POTASSIUM 3.9 mmol/L (3.5-5.1); TOT PROT 8.2 g/dl (6.4-8.2)
[2019-04-08 16:23] LABS: ANISOCYTOSIS 3+; OVALOCYTE 1+; PLATELET ESTIMATE INCREASED
[2019-04-08] MEDS ORDERED: LORazepam 2 MG/ML SDV VIAL ONE (20:18)
[2019-04-08] MEDS ORDERED: HALOPERIDOL LACTATE 5 MG/ML IM ONE (20:18)
[2019-04-08] MEDS ORDERED: HALOPERIDOL LACTATE 5 MG/ML ONE (20:18)
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
--- NOTE | 2019-04-09 01:59 | PDOC ---
*Physical Exam - Vital Signs Last Vital Signs Temp Pulse Resp BP Pulse Ox 97.4 F L 79 18 105/55 L 100 04/08/19 13:25 04/08/19 13:25 04/08/19 13:25 04/08/19 13:25 04/08/19 13:25 - Physical Exam Comments: 04/08/19 18:55 Care received at 1700. Briefly, patient presented to the emergency department acutely intoxicated on alcohol. Trauma imaging was negative. Plan at signout was to allow the patient to metabolize and reassess for clinical sobriety. At approximately 1800, patient became agitated and attempted to elope from the department. Patient not yet clinically sober. As such, security was called, and patient was placed in a stretcher. Patient continued to be agitated and noncooperative despite multiple attempts at redirection by team and security. Decision was made to give the patient Haldol 5 mg IM as well as Ativan 2 mg IM with good response in behavior. Patient was placed on constant supervision to prevent elopement. Will reassess. 04/09/19 01:00 Patient reassessed, is now clinically sober and cooperative. Patient is able to give a lucid history as to why he is here. Repeat head to toe exam unremarkable. Patient has no medical complaints and requests discharge. States he has money to stay at a hotel tonight. Patient is clinically stable for discharge. I discussed the physical exam findings, ancillary test results and final diagnoses with the patient. I answered all of the patient's questions. The patient was satisfied with the care received and felt comfortable with the discharge plan and treatment plan. The patient will call their primary care physician within 24 hours to arrange follow-up and will return to the Emergency Department with any new, persistent or worsening symptoms. ED Treatment Course - LABORATORY CBC & Chemistry Diagram: 04/08/19 15:30 04/08/19 15:30 - ADDITIONAL ORDERS Additional order review: Laboratory Results 04/08/19 04/08/19 15:30 15:30 Sodium 143 Potassium 3.9 Chloride 106 Carbon Dioxide 22 Anion Gap 16 BUN 5.1 L Creatinine 0.6 Est GFR (CKD-EPI)AfAm 134.92 Est GFR (CKD-EPI)NonAf 116.41 Random Glucose 106 Calcium 9.3 Total Bilirubin 0.2 AST 21 ALT 24 Alkaline Phosphatase 145 H Total Protein 8.2 Albumin 4.4 Alcohol, Quantitative 291.7 H 04/08/19 15:30 RBC 4.99 MCV 75.8 L MCHC 32.1 RDW 24.0 H MPV 7.4 L Neutrophils % 46.4 Lymphocytes % 37.4 Monocytes % 5.9 Eosinophils % 8.5 H Basophils % 1.8 - Medications Given in the ED: ED Medications Discontinued Medications Generic Name Dose Route Start Last Admin Trade Name Benjamin PRN Reason Stop Dose Admin Haloperidol 5 mg 04/08/19 20:18 04/08/19 20:26 Haldol Injection (Fast Acting) - IM 04/08/19 20:19 5 mg ONCE ONE Administration Lorazepam 2 mg 04/08/19 20:18 04/08/19 20:26 Ativan Injection - IM 04/08/19 20:19 2 mg ONCE ONE Administration Discharge - Discharge Information Problems reviewed: Yes Clinical Impression/Diagnosis: Alcohol dependence Qualifiers: Substance use status: with intoxication Complication of substance-induced condition: uncomplicated Qualified Code(s): F10.220 - Alcohol dependence with intoxication, uncomplicated Condition: Improved Disposition: HOME - Follow up/Referral - Patient Discharge Instructions Patient Printed Discharge Instructions: DI for Alcohol Abuse Additional Instructions: You were brought into the Emergency Department for alcohol intoxication. We obtained a CAT scan of your head that did not show any injury. We monitored you and you are sober and clinically stable to be discharged. We encourage that you decrease your alcohol intake as it is detrimental to your health. Please return to the ER if you experience any chest pain, difficulty breathing, tremors, confusion, seizures, nausea, vomiting, or any other symptoms. - Post Discharge Activity
== END 2019-04-09 02:08 | disposition home or self-care (01) ==
LOC: JER 13:20
PROC: 3E033GC Introduction of Other Therapeutic Substance into Peripheral Vein, Percutaneous Approach (ICD-10-PCS; principal; 2019-04-08)
DX: F10.220 Alcohol dependence with intoxication, uncomplicated (principal); I10 Essential (primary) hypertension; K92.9 Disease of digestive system, unspecified; Z79.84 Long term (current) use of oral hypoglycemic drugs; Z87.891 Personal history of nicotine dependence
CPT/HCPCS: 36415; 70450-TC; 72125-TC; 80053; 80307; 85025; 99283-25